=== PATIENT | male | born 1945 | race Hispanic/Latino ===

== ENCOUNTER 2018-04-29 17:12 | Inpatient (IN) | payer OTHER, MEDICARE ==
[~2018-04-29] VITALS: Ht 157.5 cm; Wt 59.8 kg
[2018-04-29] MEDS: LACTATED RINGERS 1000ML 1,000 ML IV SCH (04:00)
[2018-04-29] MEDS ORDERED: ONDANSETRON HCL 4 MG/2 ML VIAL ONE (17:43)
[2018-04-29 17:52] LABS: BASOPHILS % (AUTO) 0.3 % (0.0-5.0); EOSINOPHILS % (AUTO) 0.3 % (0.0-8.0); HEMATOCRIT 40.8 % (42-54); LYMPHOCYTES % (AUTO) 2.7 % (21.0-51.0); MEAN CORPUSCULAR HEMOGLOBIN 32.1 pg (27.0-33.0); MEAN CORPUSCULAR HGB CONC 34.1 g/dL (32.0-36.0); MEAN CORPUSCULAR VOLUME 94.3 fL (79-99); MONOCYTES % (AUTO) 3.5 % (3.0-13.0); NEUTROPHILS % (AUTO) 93.2 % (40.0-77.0); NUCLEATED RED BLOOD CELLS 0.1 % (0.0-0.19); PLATELET COUNT (AUTO) 170 K/uL (130-400); RED BLOOD CELL COUNT(AUTO) 4.33 MIL/uL (4.50-6.20); RED CELL DISTRIBUTION WIDTH 13.5 % (11.0-15.5); WHITE BLOOD COUNT (AUTO) 8.7 K/uL (4.8-10.8)
[2018-04-29 18:10] LABS: CREATININE 0.9 mg/dL (0.5-1.5); POTASSIUM 4.1 mmol/L (3.5-5.1)
[2018-04-29 18:15] LABS: ALBUMIN 3.8 g/dL (3.5-5.0); BILIRUBIN,TOTAL 0.5 mg/dL (0.2-1.0)
[2018-04-29] MEDS ORDERED: IOHEXOL-350 75 ML VIAL IV ONE (19:23)
[2018-04-29] MEDS ORDERED: ACETAMINOPHEN EXTRA STRENGTH 500 MG TABLET ONE (19:26)
[2018-04-29 20:29] LABS: APPEARANCE,URINE Clear (CLEAR); BILIRUBIN,URINE Negative (NEGATIVE); COLOR,URINE Yellow (YELLOW); GLUCOSE, URINE (UA) Negative (NEGATIVE); KETONES,URINE Negative (NEGATIVE); LEUKOCYTE ESTERASE ,URINE Negative (NEGATIVE); NITRATE,URINE Negative (NEGATIVE); OCCULT BLOOD,URINE Trace (NEGATIVE); PROTEIN,URINE Negative (NEGATIVE); UROBILINOGEN,URINE 0.2 mg/dL (0.2-1.0)
[2018-04-29 20:53] LABS: BACTERIA,URINE Rare /HPF (None Seen); RBC,URINE 0-1 /HPF (0-1); SQUAMOUS EPITHELIAL CELL,UR None Seen /HPF (0-2); WBC,URINE 0-1 /HPF (0-1)
[2018-04-29] MEDS ORDERED: LACTATED RINGERS 1000ML 1,000 ML IV ONE (22:37)
[2018-04-29] MEDS ORDERED: ZOSYN 3.375GM+NS 50ML 50 ML IV ONE (22:37)
[2018-04-29] MEDS ORDERED: ACETAMINOPHEN 650 MG SUPPOSITORY RC PRN (22:45)
[2018-04-29] MEDS: ZOSYN 3.375GM+NS 50ML 50 ML IV SCH (22:45)
[2018-04-29] MEDS ORDERED: HYDRALAZINE HCL 20 MG/ML VIAL IV PRN (22:45)
[2018-04-29] MEDS ORDERED: MORPHINE SULFATE 2 MG/ML 1ML SYG IVP PRN (22:45)
[2018-04-29] MEDS ORDERED: ONDANSETRON HCL 4 MG/2 ML VIAL IVP PRN (22:45)
[2018-04-30 02:35] LABS: CREATININE 0.9 mg/dL (0.5-1.5); POTASSIUM 3.3 mmol/L (3.5-5.1)
[2018-04-30 03:52] LABS: CREATINE KINASE, TOTAL 162 U/L (21-232); MYOGLOBIN 84 ng/mL (10-92); TROPONIN I < 0.04 ng/mL (0.00-0.06)
[2018-04-30 04:10] VITALS: BP 116/75
--- NOTE | 2018-04-30 04:15 | NUR ---
REPORT RECEIVED FROM WILLIE MEDEIROS. PT STABLE. NO DISTRESS NOTED. AAOX3. PERRLA. CAME IN DUE TO ABDOMINAL PAIN AND ALSO NAUSEA AND VOMITING. STATED HAVING ISSUES A FEW DAYS AGO. LIVES WITH GIRLFRIENDS. MEDICATIONS RECONCILED. ABLE TO AMBULATE. STATES CONCERNS. IV PATENT. STATES NO PAIN.
[2018-04-30] MEDS ORDERED: NAPR-1192 PO (05:04)
[2018-04-30] MEDS ORDERED: ALEN70TA2 PO (05:04)
[2018-04-30] MEDS ORDERED: ALBU18HF7 IH (05:04)
[2018-04-30] MEDS ORDERED: DULO20CA17 PO (05:04)
[2018-04-30] MEDS ORDERED: ATOR20TA65 PO (05:04)
[2018-04-30] MEDS ORDERED: PRAM0.5T3 PO (05:04)
[2018-04-30] MEDS ORDERED: TRAZ-185 PO (05:04)
[2018-04-30] MEDS ORDERED: AMLO1CAP PO (05:04)
[2018-04-30] MEDS: ZOSYN 3.375GM+NS 50ML 50 ML IV SCH ×3 (06:47→22:45)
[2018-04-30 07:25] VITALS: BP 125/65
[2018-04-30 11:29] VITALS: BP 125/68
[2018-04-30] MEDS ORDERED: POTASSIUM CHLORIDE 20MEQ/100ML 100 ML IV PRN (16:00)
[2018-04-30] MEDS ORDERED: LIDOCAINE HCL-MPF 1% 2ML VIAL IVP PRN (16:00)
[2018-04-30 16:12] VITALS: BP 123/69
[2018-04-30] MEDS: LACTATED RINGERS 1000ML 1,000 ML IV SCH (17:49)
[2018-04-30] MEDS: IPRATROPIUM/ALBUTEROL SULFATE 3 ML SOLUTION IH SCH ×2 (18:30→23:33)
[2018-04-30 19:15] VITALS: BP 111/60
--- NOTE | 2018-04-30 19:23 | NUR ---
cm note met with patient and states resides athome with girlfriend. mejia de souza, pt statess is independent with adls and ambulation. no dme. has provider services 3hrs daily. [facility] dc plan is back to home setting at time of dc. no dc needs. Addendum: 04/30/18 at 1925 by EUFEMIA MONTANEZ CM Amended: Links added.
[2018-04-30] MEDS ORDERED: PRAMIPEXOLE DI-HCL 0.25 MG TABLET PO SCH (21:00)
[2018-04-30] MEDS ORDERED: TRAZODONE HCL 50 MG TAB PO SCH (21:00)
[2018-04-30] MEDS ORDERED: Duloxetine HCl 20 MG PO SCH (21:00)
--- NOTE | 2018-04-30 21:00 | NUR ---
PT IN BED, SON AT BEDSIDE. STATED PAIN TO IV SITE DUE TO POTASSIUM RUNNING. SLOWED DOWN RATE. STATED DECREASE IN DISCOMFORT. PT STABLE. IN BED. NPO. NO PAIN STATED. ABLE TO AMBULATE. STATES HAS HAD DIARRHEA. PENDING TO COLLECT STOOL TO SEND TO LAB. PT AWARE. CONTINUES ON IV FLUIDS. NO CONCERNS AT THIS TIME.
[2018-04-30 23:38] VITALS: BP 109/62
[2018-05-01 03:47] LABS: HEMATOCRIT 35.6 % (42-54); MEAN CORPUSCULAR HGB CONC 35.3 g/dL (32.0-36.0); MEAN CORPUSCULAR VOLUME 93.5 fL (79-99); PLATELET COUNT (AUTO) 161 K/uL (130-400); RED BLOOD CELL COUNT(AUTO) 3.81 MIL/uL (4.50-6.20); WHITE BLOOD COUNT (AUTO) 4.2 K/uL (4.8-10.8)
[2018-05-01 04:00] VITALS: BP 112/80
[2018-05-01 04:04] LABS: ALBUMIN 2.9 g/dL (3.5-5.0); BILIRUBIN,TOTAL 0.6 mg/dL (0.2-1.0); CREATININE 1.2 mg/dL (0.5-1.5); MAGNESIUM 2.1 mg/dL (1.80-2.40); PHOSPHORUS 4.5 mg/dL (2.5-4.9); POTASSIUM 3.7 mmol/L (3.5-5.1); TOTAL PROTEIN, SERUM 5.8 g/dL (6.0-8.3)
[2018-05-01] MEDS: LACTATED RINGERS 1000ML 1,000 ML IV SCH (04:45)
[2018-05-01] MEDS: ZOSYN 3.375GM+NS 50ML 50 ML IV SCH (06:30)
[2018-05-01] MEDS: IPRATROPIUM/ALBUTEROL SULFATE 3 ML SOLUTION IH SCH ×2 (06:43→11:01)
[2018-05-01 07:25] VITALS: BP 100/58
--- NOTE | 2018-05-01 07:35 | NUR ---
ASSESSMENT ENCOUNTERED PT A&OX3, CALM COOPERATIVE AND DOES NOT APPEAR TO BE IN ANY DISTRESS NOR ANY NEURO DEFICIT PRESENT. PT DENIES PAIN, NAUSEA OR DIZZINESS. PT IS AMBULATORY, GAIT STEADY AND STRONG WITH STAND BY ASSIST. CALL LIGHT WITHIN REACH.
[2018-05-01] MEDS ORDERED: AMLODIPINE-BENAZEPRIL 5-10 MG PO SCH (09:00)
[2018-05-01] MEDS ORDERED: PANTOPRAZOLE 40 MG/VIAL IVP SCH (09:00)
[2018-05-01] MEDS ORDERED: ENOXAPARIN SODIUM 40 MG/0.4 ML SYRINGE SQ SCH (09:00)
[2018-05-01] MEDS ORDERED: ATORVASTATIN CALCIUM 20 MG TABLET PO SCH (09:00)
[2018-05-01 11:55] VITALS: BP 130/62
--- NOTE | 2018-05-01 16:00 | NUR ---
STATUS PT TOLERATING LUNCH AND DINNER, HEART HEALTHY DIET, WITH NO C/O NAUSEA, ABDOMINAL PAIN OR VOMITING. PT AMBULATING IN HALLWAY, GAIT STEADY AND STRONG WITH STAND BY ASSIST. CALL LIGHT WITHIN REACH, FAMILY AT BEDSIDE.
[2018-05-01] MEDS ORDERED: AMOX-429 PO (16:17)
--- NOTE | 2018-05-01 17:00 | NUR ---
DISCHARGE INSTRUCTIONS GIVEN, PIV REMOVED AND INTACT, DISCHARGED HOME TO FAMILY VEHICLE VIA WHEELCHAIR.
== END 2018-05-01 17:50 | disposition home or self-care (01) | DRG 391 ==
LOC: EDH 17:12 → EDHIP 21:13 → 2AH 04-30 04:02
PROVIDERS: ADMIT Internal Medicine Critical Care Medicine; ATTEND Internal Medicine Critical Care Medicine
DX: K52.9 Noninfective gastroenteritis and colitis, unspecified (principal); K85.90 Acute pancreatitis without necrosis or infection, unspecified; E78.5 Hyperlipidemia, unspecified; E86.0 Dehydration; K80.20 Calculus of gallbladder without cholecystitis without obstruction; F41.8 Other specified anxiety disorders; I11.0 Hypertensive heart disease with heart failure; I50.9 Heart failure, unspecified; J44.9 Chronic obstructive pulmonary disease, unspecified; Z72.0 Tobacco use; Z90.49 Acquired absence of other specified parts of digestive tract
CPT/HCPCS: 36415; 71045; 74177; 80048; 80053; 80061; 81001; 82550; 83605; 83690; 83735; 83874; 84100; 84484; 85025; 85027; 87493; 87804; 93005; 94640; 94664; C9113; G0378; J1650; J2405; J2543; J3480; J3490; J7120; Q9967